=== PATIENT | female | born 1955 ===

== ENCOUNTER 2021-10-12 06:22 | Day surgery (SDC) | payer OTHER | END 2021-10-12 10:05 | disposition home or self-care (01) | LOC: AMB-ENDOS 06:22 | PROVIDERS: ATTEND Surgery | DX: C18.7 Malignant neoplasm of sigmoid colon (principal); D12.0 Benign neoplasm of cecum; K64.8 Other hemorrhoids; Z20.822 Contact with and (suspected) exposure to COVID-19 ==